=== PATIENT | male | born 1990 ===

== ENCOUNTER 2023-01-15 08:05 | Outpatient (RCR) | payer OTHER, SELFPAY ==
[2023-01-15 08:10] VITALS: BMI 47.0
[2023-01-15 08:15] VITALS: BMI 47.0
[2023-01-15 13:59] VITALS: BMI 47.0
== END 2023-04-06 10:44 | disposition home or self-care (01) ==
LOC: ANHDMC 08:05
PROVIDERS: Visit Provider Internal Medicine
DX: E66.01 Morbid (severe) obesity due to excess calories (principal); Z68.42 Body mass index [BMI] 45.0-49.9, adult; Z71.3 Dietary counseling and surveillance
CPT/HCPCS: 97802